=== PATIENT | female | born 1960 | race Caucasian/White ===

== ENCOUNTER → 2016-06-07 | Outpatient (CLI) | payer BC | LOC: MAMO 05-31 13:00 | DX: Z12.31 Encounter for screening mammogram for malignant neoplasm of breast (principal) | CPT/HCPCS: G0202 ==

== ENCOUNTER → 2020-08-17 | Outpatient (CLI) | payer BC, OTHER | LOC: MRI 08-11 13:00 | DX: S76.019A Strain of muscle, fascia and tendon of unspecified hip, initial encounter (principal) | CPT/HCPCS: 73721 ==